=== PATIENT | male | born 1955 | race Caucasian/White ===

== ENCOUNTER 2017-04-27 18:45 | Emergency (ER) | payer OTHER ==
[~2017-04-27] VITALS: Ht 175.3 cm; Wt 94.9 kg
[2017-04-27 19:00] VITALS: BP 163/79; PULSE 73; RESP 18; TEMP 99; O2SAT 96
[2017-04-27] MEDS ORDERED: ADVITAB3 PO (19:13)
[2017-04-27] MEDS ORDERED: SODIUM CHLORIDE 0.9% FLUSH 10 ML FLUSH IVF PRN (20:30)
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
[2017-04-27 20:53] LABS: AUTOMATED NEUTROPHIL # 3.1 TH/MM3 (1.8-7.7); BASOPHIL % 0.5 % (0.0-2.0); EOSINOPHIL # 0.1 TH/MM3 (0-0.4); EOSINOPHIL % 1.5 % (0.0-4.0); HEMATOCRIT 44.9 % (39.0-51.0); HEMOGLOBIN 14.6 GM/DL (13.0-17.0); LYMPH % 20.5 % (9.0-44.0); MEAN CELL VOLUME 91.4 FL (80.0-100.0); MEAN CORPUSCULAR HEMOGLOBIN 29.8 PG (27.0-34.0); MEAN CORPUSCULAR HGB CONC 32.6 % (32.0-36.0); MONO % 13.4 % (0.0-8.0); MONOCYTE # 0.7 TH/MM3 (0-0.9); NEUT % 64.1 % (16.0-70.0); PLATELET COUNT 257 TH/MM3 (150-450); RED BLOOD COUNT 4.92 MIL/MM3 (4.50-5.90); RED CELL DISTRIBUTION WIDTH 12.5 % (11.6-17.2); WHITE BLOOD COUNT 4.9 TH/MM3 (4.0-11.0)
[2017-04-27 21:11] LABS: CHLORIDE 104 MEQ/L (98-107); SODIUM (NA) 137 MEQ/L (136-145)
[2017-04-27 21:14] LABS: CALCIUM 8.6 MG/DL (8.5-10.1)
[2017-04-27 21:15] LABS: ALBUMIN 3.7 GM/DL (3.4-5.0); BICARBONATE 25.9 MEQ/L (21.0-32.0); BLOOD UREA NITROGEN 15 MG/DL (7-18); GLUCOSE,RANDOM 87 MG/DL (74-106)
[2017-04-27 21:18] LABS: ALT (GPT) 33 U/L (12-78); AST (GOT) 21 U/L (15-37); CREATININE 0.87 MG/DL (0.60-1.30); GLOMERULAR FILTRATION RATE 90 ML/MIN (>89)
[2017-04-27 21:19] LABS: TOTAL BILIRUBIN ADULT 0.3 MG/DL (0.2-1.0); TOTAL PROTEIN 7.1 GM/DL (6.4-8.2)
[2017-04-27 21:21] LABS: ALKALINE PHOSPHATASE 53 U/L (45-117)
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
[2017-04-27] MEDS ORDERED: IOHEXOL 350 MG/ML 10 ML VIAL (for RAD DIAG) IVCONTRAST ONE (22:59)
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
[2017-04-27 23:39] VITALS: BP 146/82; PULSE 62; RESP 18; TEMP 98.3; O2SAT 98
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
[2017-04-28] MEDS ORDERED: TIZA4 PO (00:17)
[2017-04-28 00:37] VITALS: BP 140/82
== END 2017-04-28 00:39 | disposition home or self-care (01) ==
LOC: PHEFT 18:45
DX: S39.012A Strain of muscle, fascia and tendon of lower back, initial encounter (principal); S60.221A Contusion of right hand, initial encounter; M25.531 Pain in right wrist; R07.89 Other chest pain; V49.49XA Driver injured in collision with other motor vehicles in traffic accident, initial encounter
CPT/HCPCS: 71260; 72125; 72129; 72132; 73110; 73130; 74177; 80053; 85025; 85610; 85730; 86850; 86900; 86901; 99285; Q9967